=== PATIENT | male | born 1965 | race African-American/Black ===

== ENCOUNTER 2020-09-23 02:29 | Emergency (ER) | payer MEDICAID, MEDICARE ==
[~2020-09-23] VITALS: Ht 180.3 cm; Wt 80.0 kg
[2020-09-23] MEDS ORDERED: ACETAMINOPHEN 325MG TABLET PO ONE (03:15)
[2020-09-23 05:00] VITALS: BP 102/62
[2020-09-23] MEDS ORDERED: IBUP-2028 MT (05:23)
== END 2020-09-23 06:50 | disposition home or self-care (01) ==
LOC: ER 02:29
DX: M25.552 Pain in left hip (principal); M87.9 Osteonecrosis, unspecified; F17.200 Nicotine dependence, unspecified, uncomplicated; I10 Essential (primary) hypertension; Z88.8 Allergy status to other drugs, medicaments and biological substances
CPT/HCPCS: 72170; 74176; 99284; 99406